=== PATIENT | female | born 1950 | race Caucasian/White ===

== ENCOUNTER → 2017-12-10 | Day surgery (SDC) | payer MEDICARE, OTHER ==
--- NOTE | 2017-12-09 13:08 | Diagnostic Imaging Report ---
PROCEDURE: Frontal and lateral views of the chest. COMPARISON: None. INDICATIONS: PRE-OPERATIVE CHEST X-RAY FOR EAR SURGERY FINDINGS: Lines/tubes: None. Lungs: The lungs are well inflated and clear. There is no evidence of pneumonia or pulmonary edema. Pleura: There is no pleural effusion or pneumothorax. Heart and mediastinum: The heart and the mediastinum are normal. Bones: No acute bony abnormality. Dizziness and thoracic spine, most notably at T11-T12. IMPRESSION: 1. No acute cardiopulmonary disease. Dictated by: Devin Coley M.D. on 12/09/2017 at 13:12 Electronically approved by: Devin Coley M.D. on 12/09/2017 at 13:12
[~2017-12-10] MED LIST: ASA81 MG; CARVEDILOL12.5 MG PO; CENTRUM SILVER1 EAC3 PO; CLONIDINE HCL0.1 MG PO; DEXAMETHASONE PHOS 24 MG/ML 10ML VIAL IV SCH; DEXAMETHASONE SOD PHOS INJ 4 MG/ML VIAL ONE; DIOVAN160 MG PO; FENTANYL CITRATE/PF 100MCG/2 ML INJ ONE; HYDRALAZINE HCL25 MG PO; LIDOCAINE HCL 2% LOCAL INJ 5 ML SDV VIAL INJ ONE; MIDAZOLAM HCL 2 MG/2 ML VIAL ONE; OFLOXACIN 0.3% (OTIC SOL) 5 ML BTL OT SCH; ONDANSETRON HCL INJ 2 MG/ML VIAL ONE; PROCARDIA XL30 MG PO; PROPOFOL IV EMULSION 10 MG/ML 20 ML VIAL ONE; SEVOFLURANE INHAL SOLN 250 ML PEN BTL ONE; VIT D3 PO; Z.0.AMLODIPINE BESY1; Z.0.CALTRATE 600 +1; Z.0.NEXIUM40 MG; Z.0.PLAVIX75 MG; Z.0.PRAVACHOL20 MG; Z.0.XANAX0.25 MG; ZANTAC 7575 MG PO; [UNRECOGNIZED DRUG - OTHER]
--- NOTE | 2017-12-10 05:44 | Pre Op History & Physical ---
CHIEF COMPLAINT: Right sudden sensorineural hearing loss. HISTORY OF PRESENT ILLNESS: This 66-year-old female has a 4 month history of hearing loss in the left side. The patient claimed that initially the hearing comes and goes, and finally it was gone. She has no surgery to her ear. The patient has no otalgia, no discharge from the ear. The patient does have vertigo. The patient was seen by another ENT initially prior to coming to see me the 1st time on November 25, 2017. The audiogram that was done showed the patient has moderate to high frequency sensorineural hearing loss on the right side with severe to moderate sensory hearing loss on the left with speech discrimination of 60% on the left side and 95% on the right. An MRI apparently of the skull base was ordered by ( ), which according to his notes were normal but at the time of dictation I do not have the report in front of me. REVIEW OF SYSTEMS: Showed no recent cardiovascular, respiratory or GI problem. PAST MEDICAL HISTORY: Patient with a history of coronary artery disease and hypertension. PAST SURGICAL HISTORY: She has a previous knee surgery, hysterectomy and cardiac stent. ALLERGIES: PATIENT IS ALLERGIC TO ANCEF, CELEBREX, FLAGYL, FLOXIN, SULFA MEDICATION, CLINDAMYCIN, CELEXA, CODEINE, KEFLEX AND PENICILLIN. MEDICATIONS: She is on alprazolam, aspirin, carvedilol, Centrum Silver, Citracal, clonidine, clopidogrel/Plavix, hydralazine, Nexium, nifedipine, NitroQuick, pravastatin, valsartan, vitamin D and Zantac. SOCIAL HISTORY: She is a nonsmoker, nondrinker. FAMILY HISTORY: Noncontributory. PHYSICAL EXAMINATION: VITAL SIGNS: Within normal limits. EAR: Exam showed normal tympanic membranes bilaterally. NOSE: Exam showed deviated nasal septum to the left side about 30%. THROAT: Oropharynx and oral cavity showed 2+ tonsils bilaterally with no exudate or debris. NECK: Exam showed no lymph node or thyroid palpable. CHEST: Exam showed good air entry bilaterally. CARDIOVASCULAR: Exam showed S1 and S2. No murmur noted. IRON ASSORTER: Exam showed cranial nerves 2 through 12 were within normal limits. Mrs. Chapman has left sudden sensorineural hearing loss. The suggested treatment is myringotomy and tubes in the left side with Decadron instillation to the ear and other necessary procedures with possible bilateral myringotomy and tubes and other necessary procedures. Complications of procedure includes but not limited to bleeding, infection, TM perforation, persistent drainage from the ear, hearing loss recurrence of the ear infection. Alternative would be continued observation, continued antibiotic therapy, topical nasal steroid therapy, systemic steroid therapy, decongestant, and myringotomy and tubes and Decadron instillation in the office setting or just Decadron instillation using a syringe and needle in the office setting. The patient has elected to undergo the surgical procedure. She has been advised to stop her Plavix and aspirin, if it was cleared by her focuser, 7 to 10 days before surgery. Job#: [id number] cc:RADHA RAMOS PA-C
--- NOTE | 2017-12-10 10:58 | Operative Report ---
DATE OF PROCEDURE: December 10, 2017 CHIEF COMPLAINT: Left sudden sensorineural hearing loss. POSTOPERATIVE DIAGNOSIS: Left sudden sensorineural hearing loss. TITLE OF PROCEDURE: Bilateral myringotomy and tubes and Decadron installation on the left ear. ANESTHESIA: Dr. Fang INDICATIONS: This 66-year-old female has a 4-month history of hearing loss on the left ear. The patient has been seen by another key sander with persistent hearing loss. The patient had an MRI of the skull base which was negative. The audiogram showed the patient has discrepancy between the 2 ears with speech discrimination worse on the left side. It was decided that Decadron installation in the left middle ear with bilateral myringotomy tubes and other necessary procedure would be beneficial for her. Patient was taken to the operating room and put under general anesthesia. LMA airway created. Right ear was examined. Ear canal was debrided. Myringotomy was done in the anterior superior quadrant. No effusion was noted in the middle ear cleft. An Lorenz grommet tube was inserted. The insertion of the tube on the right side was expressed by the patient's desire to do bilateral myringotomy and tubes. The left ear was examined. Ear canal was debrided. The myringotomy was done in the anterior inferior quadrant. No effusion was noted in the middle ear cleft, and 0.5 mL of 24 mg per mL of Decadron was inserted into the middle ear. The patient tolerated the above procedure well with minimal blood loss. She was able to be transferred to recovery room in stable condition. Job#: [id number] cc:RADHA RAMOS PA-C
== END | disposition home or self-care (01) ==
LOC: OR 06:59
PROVIDERS: ATTEND Otolaryngology Otolaryngology/Facial Plastic Surgery
DX: H90.42 Sensorineural hearing loss, unilateral, left ear, with unrestricted hearing on the contralateral side (principal); R47.89 Other speech disturbances; I25.10 Atherosclerotic heart disease of native coronary artery without angina pectoris; I10 Essential (primary) hypertension; F41.9 Anxiety disorder, unspecified; K21.9 Gastro-esophageal reflux disease without esophagitis; F32.9 Major depressive disorder, single episode, unspecified; Z88.6 Allergy status to analgesic agent; Z88.1 Allergy status to other antibiotic agents; Z88.3 Allergy status to other anti-infective agents; Z88.0 Allergy status to penicillin; Z88.2 Allergy status to sulfonamides; Z88.8 Allergy status to other drugs, medicaments and biological substances; Z01.810 Encounter for preprocedural cardiovascular examination; Z01.818 Encounter for other preprocedural examination; Z79.82 Long term (current) use of aspirin; Z79.02 Long term (current) use of antithrombotics/antiplatelets; Z95.5 Presence of coronary angioplasty implant and graft
CPT/HCPCS: 69436; 71046; 93005; J1100; J2001; J2250; J2405